=== PATIENT | female | born 1990 | race Two or more races ===

== ENCOUNTER 2024-05-24 13:52 | Outpatient (CLI) | payer OTHER | END 2024-05-24 13:53 | disposition home or self-care (01) | LOC: PRENATAL 13:52 | PROVIDERS: ATTEND Obstetrics & Gynecology Maternal & Fetal Medicine | DX: O35.3XX0 Maternal care for (suspected) damage to fetus from viral disease in mother, not applicable or unspecified (principal); O44.00 Complete placenta previa NOS or without hemorrhage, unspecified trimester; O36.1999 Maternal care for other isoimmunization, unspecified trimester, other fetus; Z3A.29 29 weeks gestation of pregnancy ==

== ENCOUNTER 2024-06-28 10:41 | Outpatient (CLI) | payer OTHER | END 2024-06-28 10:45 | disposition home or self-care (01) | LOC: PRENATAL 10:41 | PROVIDERS: ATTEND Obstetrics & Gynecology Maternal & Fetal Medicine | DX: O26.849 Uterine size-date discrepancy, unspecified trimester (principal); O36.8199 Decreased fetal movements, unspecified trimester, other fetus; O36.1999 Maternal care for other isoimmunization, unspecified trimester, other fetus; Z3A.34 34 weeks gestation of pregnancy ==